=== PATIENT | female | born 1985 | race Caucasian/White ===

== ENCOUNTER 2018-06-08 15:49 | Emergency (ER) | payer SELFPAY ==
[2018-06-08 16:04] VITALS: TEMP 98.4
[2018-06-08] MEDS ORDERED: METOCLOPRAMIDE HCL INJ 10 MG/2 ML VIAL IV ONE (16:47)
[2018-06-08] MEDS ORDERED: KETOROLAC TROMETHAMINE INJ 30 MG/ML VIAL IV ONE (16:47)
--- NOTE | 2018-06-08 17:09 | ED.PDOC ---
History of Present Illness - General Chief Complaint: Headache Stated Complaint: headache Time Seen by Provider: 06/08/18 16:37 Source: patient Exam Limitations: no limitations - History of Present Illness Timing/Duration: other - 4 DAYS Quality: moderate Head Injury Location: temporal, other - L SIDED Recent Head Trauma: no recent headache/trauma, occasional headaches Improving Factors: nothing Worsening Factors: nothing Allergies/Adverse Reactions: Allergies Iodine Allergy (Verified 01/13/16 20:11) Home Medications: Ambulatory Orders NK 06/08/18 Review of Systems - Review of Systems Constitutional: Denies: chills, fever EENTM: States: other - PHOTOPHOBIA. Denies: ear pain, throat pain Respiratory: Denies: cough, short of breath Cardiology: Denies: chest pain, palpitations Gastrointestinal/Abdominal: States: nausea. Denies: abdominal pain, vomiting Genitourinary: States: no symptoms reported Musculoskeletal: States: no symptoms reported Skin: States: no symptoms reported Neurological: States: headache. Denies: numbness, paresthesia, weakness Endocrine: States: no symptoms reported Hematologic/Lymphatic: States: no symptoms reported Past Medical History (General) - Patient Medical History Hx Seizures: No Hx Stroke: No Hx Dementia: No Hx Asthma: No Hx of COPD: No Hx Cardiac Disorders: No Hx Congestive Heart Failure: No Hx Pacemaker: No Hx Hypertension: No Hx Thyroid Disease: No Hx Diabetes: No Hx Gastroesophageal Reflux: No Hx Renal Disease: No Hx Cancer: No Hx of HIV: No Hx Hepatitis C: No Hx MRSA: No Surgical History: appendectomy - Vaccination History Hx Tetanus, Diphtheria Vaccination: Yes Hx Influenza Vaccination: No Hx Pneumococcal Vaccination: Yes - Social History Hx Tobacco Use: No Hx Alcohol Use: No Hx Substance Use: No Hx Substance Use Treatment: No Hx Depression: No - Female History Patient is a Female of Child Bearing Age (10 -59 yrs old): Yes Patient : No Family Medical History - Family History Mother Family History: No Known Physical Exam - Physical Exam General Appearance: Alert, No apparent distress Eyes, Ears, Nose, Throat Exam: PERRL/EOMI, TMs normal, other - OP NL Neck: full range of motion, supple, normal inspection Cardiovascular/Chest: regular rate, rhythm, no murmur Respiratory: lungs clear, normal breath sounds Gastrointestinal/Abdominal: non tender, soft, no organomegaly Back Exam: normal inspection, no CVA tenderness, no vertebral tenderness Extremity: normal range of motion, non-tender, normal inspection 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 Departure - Departure Clinical Impression: Migraine Qualifiers: Migraine type: without aura Status migrainosus presence: with status migrainosus Intractability: not intractable Qualified Code(s): G43.001 - Migraine without aura, not intractable, with status migrainosus Time of Disposition: 18:15 Disposition: Discharge to Home or Self Care Condition: Excellent Departure Forms: ED Discharge - Pt. Copy, Patient Portal Self Enrollment Instructions: Migraine Headache (DC), Acetaminophen, Aspirin, and Caffeine Referrals: Darius Meza MD [Primary Care Provider] - 1-2 Weeks Home Medications: Ambulatory Orders NK 06/08/18 Additional Instructions: USE EXCEDRIN MIGRAINE FOR FUTURE JAY'S
[2018-06-08 18:22] VITALS: BP 133/91; O2SAT 98
== END 2018-06-08 18:21 | disposition home or self-care (01) ==
LOC: ER 15:49
DX: G43.001 Migraine without aura, not intractable, with status migrainosus (principal); Z91.041 Radiographic dye allergy status
CPT/HCPCS: J1885; J2765

== ENCOUNTER 2019-05-08 10:20 | Emergency (ER) | payer SELFPAY ==
[2019-05-08] MEDS ORDERED: ACETAMINOPHEN 500 MG TAB PO ONE (10:33)
--- NOTE | 2019-05-08 10:36 | ED.PDOC ---
History of Present Illness - General Chief Complaint: Fever Stated Complaint: fever, sore throat, vomiting Time Seen by Provider: 05/08/19 10:24 Source: patient, family Additional Information: Patient is a healthy 34 year old with no significant past medical history who presents to the ED complaining of fever, body aches, headache, sore throat and vomiting. Reports that she did get a flu shot this year. Kids were recently sick with the flu. Symptoms started yesterday, she did start taking tamiflu. Had zofran at home as well. Last dose of ibuprofen was yesterday evening. No other complaints at this time. 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 Denies: short of breath, wheezing Cardiology: Denies: chest pain, edema, palpitations Gastrointestinal/Abdominal: States: nausea, vomiting. Denies: abdominal pain Genitourinary: Denies: discharge, dysuria, frequency, hematuria Musculoskeletal: States: muscle pain, muscle stiffness Skin: Denies: change in color, rash Neurological: States: headache. Denies: numbness, weakness Endocrine: States: no symptoms reported Hematologic/Lymphatic: States: no symptoms reported All other Systems: Reviewed and Negative Past Medical History (General) - Patient Medical History Hx Seizures: No Hx Stroke: No Hx Dementia: No Hx Asthma: No Hx of COPD: No Hx Cardiac Disorders: No Hx Congestive Heart Failure: No Hx Pacemaker: No Hx Hypertension: No Hx Thyroid Disease: No Hx Diabetes: No Hx Gastroesophageal Reflux: No Hx Renal Disease: No Hx Cancer: No Hx of HIV: No Hx Hepatitis C: No Hx MRSA: No Surgical History: other - Vaccination History Hx Tetanus, Diphtheria Vaccination: Yes Hx Influenza Vaccination: No Hx Pneumococcal Vaccination: Yes - Social History Hx Tobacco Use: No Hx Alcohol Use: No Hx Substance Use: No Hx Substance Use Treatment: No Hx Depression: No - Female History Patient : No Family Medical History - Family History Mother Family History: No Known Physical Exam - Physical Exam General Appearance: Alert, Ill Appearing Eye Exam: left normal ENT Exam: normal ENT inspection Neck: non-tender, full range of motion Respiratory: normal breath sounds, no respiratory distress, no accessory muscle use Cardiovascular/Chest: normal peripheral pulses, regular rate, rhythm, no murmur Gastrointestinal/Abdominal: non tender, soft Neurologic: alert, normal mood/affect, oriented x 3 Skin Exam: normal color, warm/dry Progress - Progress Progress: 05/08/19 11:00 patient tested positive for strep and flu. Will treat with amoxicillin. She declined tamiflu. Otherwise well appearing. Will continue outpatient symptomatic management and she will follow up with her PCP. - Results/Orders Results/Orders: Laboratory Results - last 24 hr 05/08/19 10:40 Group A Strep Rapid Positive Patient presents to ED with fever, myalgias and sore throat. Positive for strep and flu b. Otherwise well appearing in ED. She declined tamiflu, will continue outpatient symptomatic management with tylenol/motrin and zofran. Amoxicillin for pharyngitis. Home care instructions and return indications reviewed. Departure - Departure Clinical Impression: Strep pharyngitis, Influenza B Time of Disposition: 11:01 Disposition: Discharge to Home or Self Care Condition: Fair Departure Forms: ED Discharge - Pt. Copy, Patient Portal Self Enrollment Instructions: DI for Fever (Symptom) -- Adult, Strep Throat (DC), Flu, Adult (DC) Diet: resume usual diet Activity: increase activity as tolerated Referrals: Darius Meza MD [Primary Care Provider] - 1-2 Weeks Prescriptions: Ondansetron Tab [Zofran Tab] 4 mg PO Q6HRS PRN #12 tab PRN Reason: Nausea Amoxicillin 500 mg PO BID #20 cap Home Medications: Ambulatory Orders Amoxicillin 500 mg PO BID #20 cap 05/08/19 Citalopram Hydrobromide 10 mg PO DAILY 05/08/19 Ondansetron Tab [Zofran Tab] 4 mg PO Q6HRS PRN #12 tab 05/08/19 Trazodone HCl [Trazodone Hydrochloride] 50 mg PO DAILY 05/08/19
[2019-05-08 11:13] VITALS: BP 115/87; TEMP 100.4; O2SAT 95
== END 2019-05-08 11:11 | disposition home or self-care (01) ==
LOC: ER 10:20
DX: J02.0 Streptococcal pharyngitis (principal); J10.1 Influenza due to other identified influenza virus with other respiratory manifestations